=== PATIENT | female | born 1960 | race Caucasian/White ===

== ENCOUNTER → 2016-11-27 | Outpatient (CLI) | payer OTHER ==
[~2016-11-27] MED LIST: COREG 12.5MG12.5 MG PO; DOXYCYCLINE HY100 M2 PO; HYDROCHLOROTH12.5 MG PO; IPRAT-ALBUT 0.5-3 ML INH; MUCINEX600 MG PO; NORVASC 5 MG TAB5 MG PO; PREDNISONE10 MG PO; STIOLOTO RESPIMAT INH
== END ==
LOC: HEART 5 13:39
DX: J44.9 Chronic obstructive pulmonary disease, unspecified (principal)
CPT/HCPCS: 94060; 94729